=== PATIENT | male | born 1935 | race Caucasian/White ===

== ENCOUNTER 2017-10-03 13:03 | Observation (INO) ==
[2017-10-03] MEDS ORDERED: CLINDAMYCIN INJ 900 MG in PREMIX 1 EACH IV ONE (15:03)
[2017-10-03 15:26] LABS: Basophils # 0.1 10*3/uL (0.0-0.2); Basophils % 0.6 % (0.0-0.8); Eosinophils # 0.3 10*3/uL (0.0-0.87); Eosinophils % 3.1 % (0.00-10.9); Hematocrit 35.7 VOL% (42.0-52.0); Hemoglobin 11.9 GM/DL (14.0-18.0); Immature Granulocytes % 0.6 %; Immature Granulocytes Absolute 0.06 #; Lymphocytes # 2.4 10*3/uL (1.4-4.0); Lymphocytes % 22.1 % (21.2-54.2); Mean Corpuscular HGB Conc 33.3 GM/DL (32-36); Mean Corpuscular Hemoglobin 30 PG (27-34); Mean Corpuscular Volume 88.8 FL (87-102); Mean Platelet Volume 11.2 FL (9.6-12.0); Monocytes # 1.4 10*3/uL (0.11-0.8); Monocytes % 12.9 % (1.7-12.7); Neutrophils # 6.6 10*3/uL (1.4-7.4); Neutrophils % 60.7 % (38.7-73.9); Platelet Count 287 T/CUMM (130-400); Red Blood Count 4.02 MC/CUMM (3.8-5.5); Red Cell Distribution Width 13.5 % (9.3-17.3); White Blood Count 10.8 T/CUMM (4-12)
[2017-10-03] MEDS ORDERED: CLINDAMYCIN INJ 50 ML IV ONE (15:47)
[2017-10-03 15:54] LABS: Calcium 8.7 MG/DL (8.5-10.1); Osmolality,Calculated 283.5 MOS/KG (273-304); Potassium 4.5 MMOL/L (3.5-5.1)
[2017-10-03] MEDS ORDERED: fentaNYL 100 MCG/2 ML VIAL ONE (16:36)
[2017-10-03] MEDS ORDERED: ONDANSETRON 4 MG/2 ML VIAL ONE ×2 (16:36→16:50)
[2017-10-03] MEDS ORDERED: ROCURONIUM 100 MG/10 ML VIAL IV ONE (16:36)
[2017-10-03] MEDS ORDERED: SUCCINYLCHOLINE 200 MG/10 ML VIAL ONE (16:36)
[2017-10-03] MEDS ORDERED: PROPOFOL 200 MG/20 ML VIAL IV ONE (16:37)
[2017-10-03] MEDS ORDERED: MEPERIDINE 25 MG/1 ML VIAL ONE (16:50)
[2017-10-03] MEDS ORDERED: ONDANSETRON 4 MG/2 ML VIAL IV PRN ×2 (16:51→17:29)
[2017-10-03] MEDS ORDERED: MEPERIDINE 25 MG/1 ML VIAL IV PRN (16:51)
[2017-10-03] MEDS ORDERED: PROMETHAZINE 25 MG/1 ML VIAL IM PRN (17:29)
[2017-10-03] MEDS ORDERED: HYDROmorphone 2 MG/1 ML VIAL IV PRN (17:29)
[2017-10-03] MEDS ORDERED: DEXTROSE 50% 25 GM/50 ML VIAL IV PRN (17:54)
[2017-10-03] MEDS ORDERED: GLUCAGON 1 MG VIAL IM PRN (17:54)
[2017-10-03] MEDS ORDERED: LEVOFLOXACIN INJ 500 MG in PREMIX 1 EACH IV SCH (18:00)
[2017-10-03] MEDS: LACTATED RINGERS 1,000 ML IV SCH (18:41)
[2017-10-03] MEDS: GABAPENTIN 400 MG CAPSULE PO SCH ×2 (18:41→21:17)
[2017-10-03] MEDS ORDERED: ZALEPLON 5 MG CAPSULE PO SCH (21:00)
[2017-10-03] MEDS ORDERED: AMITRIPTYLINE 50 MG TABLET PO SCH (21:00)
[2017-10-03] MEDS: INSULIN REGULAR 100 UNIT/ML SUBCUT SCH (21:17)
[2017-10-03] MEDS: metroNIDAZOLE INJ 500 MG in PREMIX 1 EACH IV SCH (21:19)
[2017-10-03] MEDS ORDERED: PHENOL 1.4% THROAT SPRAY 177 ML BOTTLE PO PRN (22:15)
[2017-10-04] MEDS: LACTATED RINGERS 1,000 ML IV SCH ×2 (01:56→10:44)
[2017-10-04] MEDS: metroNIDAZOLE INJ 500 MG in PREMIX 1 EACH IV SCH (04:39)
[2017-10-04 06:50] LABS: Basophils # 0.1 10*3/uL (0.0-0.2); Basophils % 0.8 % (0.0-0.8); Eosinophils # 0.3 10*3/uL (0.0-0.87); Eosinophils % 2.7 % (0.00-10.9); Hematocrit 30.7 VOL% (42.0-52.0); Hemoglobin 9.8 GM/DL (14.0-18.0); Immature Granulocytes % 0.3 %; Immature Granulocytes Absolute 0.03 #; Lymphocytes # 2.2 10*3/uL (1.4-4.0); Lymphocytes % 22.7 % (21.2-54.2); Mean Corpuscular HGB Conc 31.9 GM/DL (32-36); Mean Corpuscular Hemoglobin 29 PG (27-34); Mean Corpuscular Volume 91.1 FL (87-102); Mean Platelet Volume 10.1 FL (9.6-12.0); Monocytes # 1.3 10*3/uL (0.11-0.8); Monocytes % 13.3 % (1.7-12.7); Neutrophils # 5.8 10*3/uL (1.4-7.4); Neutrophils % 60.2 % (38.7-73.9); Platelet Count 229 T/CUMM (130-400); Red Blood Count 3.37 MC/CUMM (3.8-5.5); Red Cell Distribution Width 13.4 % (9.3-17.3); White Blood Count 9.7 T/CUMM (4-12)
[2017-10-04 07:23] LABS: Calcium 7.8 MG/DL (8.5-10.1); Osmolality,Calculated 275.8 MOS/KG (273-304)
[2017-10-04] MEDS: INSULIN REGULAR 100 UNIT/ML SUBCUT SCH ×2 (08:20→12:06)
[2017-10-04] MEDS: GABAPENTIN 400 MG CAPSULE PO SCH (08:25)
[2017-10-04] MEDS ORDERED: FLUoxetine 20 MG CAPSULE PO SCH (09:00)
[2017-10-04] MEDS ORDERED: ASPIRIN EC 81 MG TABLET PO SCH (09:00)
[2017-10-04] MEDS ORDERED: TAMSULOSIN 0.4 MG CAPSULE PO SCH (09:00)
[2017-10-04] MEDS ORDERED: ENOXAPARIN 40 MG/0.4 ML SYRINGE SUBCUT SCH (10:19)
[2017-10-04 11:50] VITALS: BP 140/74
== END 2017-10-04 13:00 | disposition home or self-care (01) ==
LOC: N.ED 13:03 → N.EDINP 13:03 → N.3E 16:15
PROVIDERS: ADMIT Surgery; ATTEND Surgery